=== PATIENT | female | born 1995 ===

== ENCOUNTER 2019-02-06 14:31 | Inpatient (IN) | payer OTHER ==
[2019-02-06] VITALS (43 sets, daily range): BP systolic 117–169; BP diastolic 66–104
[~2019-02-06] VITALS: Ht 162.6 cm; Wt 75.3 kg
[2019-02-06 15:00] LABS: BILIRUBIN,URINE NEGATIVE (NEGATIVE); CLARITY,URINE CLEAR; COLOR,URINE YELLOW; GLUCOSE, URINE (UA) NEGATIVE (NEGATIVE); KETONES,URINE NEGATIVE (NEGATIVE); LEUKOCYTE ESTERASE ,URINE NEGATIVE (NEGATIVE); NITRITE,URINE NEGATIVE (NEGATIVE); PROTEIN,URINE 1+ (NEGATIVE)
[2019-02-06 15:07] LABS: BACTERIA,URINE FEW /HPF; RBC,URINE 25-50 /HPF; WBC,URINE RARE /HPF
[2019-02-06] MEDS ORDERED: D5 LR IV SOLUTION 1,000 ML IV SCH (15:36)
[2019-02-06] MEDS ORDERED: MINERAL OIL CONCENTRATE 99.9% 15 ML UDC TOP SCH (15:45)
[2019-02-06 16:08] LABS: BASOPHILS % (AUTO) 0 % (0-10); EOSINOPHILS # (AUTO) 0.1 10^3/uL (0.0-0.3); EOSINOPHILS % (AUTO) 1 % (0-10); HEMATOCRIT 32 % (35-52); HEMOGLOBIN 10.5 G/DL (11.5-16.0); LYMPHOCYTES # (AUTO) 2.2 X 10^3 (1.0-4.0); LYMPHOCYTES % (AUTO) 20 % (12-44); MEAN CORPUSCULAR HEMOGLOBIN 28 PG (25-34); MEAN CORPUSCULAR HGB CONC 33 G/DL (32-36); MEAN CORPUSCULAR VOLUME 85 FL (80-99); MEAN PLATELET VOLUME 11.4 FL (7.4-10.4); MONOCYTES # (AUTO) 0.9 X 10^3 (0.0-1.0); MONOCYTES % (AUTO) 8 % (0-12); NEUTROPHILS # (AUTO) 7.9 X 10^3 (1.8-7.8); NEUTROPHILS % (AUTO) 71 % (42-75); PLATELET COUNT 263 10^3/uL (130-400); RED CELL DISTRIBUTION WIDTH 16.3 % (10.0-14.5); WHITE BLOOD COUNT 11.2 10^3/uL (4.3-11.0)
[2019-02-06 16:30] LABS: BENZODIAZEPINES SCREEN URINE NEGATIVE (NEGATIVE); COCAINE SCREEN URINE NEGATIVE (NEGATIVE)
[2019-02-06 16:31] LABS: AMPHETAMINE SCREEN, URINE POSITIVE (NEGATIVE); BARBITURATE SCREEN URINE NEGATIVE (NEGATIVE); CANNABINOID SCREEN, URINE NEGATIVE (NEGATIVE); METHADONE STAT NEGATIVE (NEGATIVE); METHAMPHETAMINE SCREEN URINE S POSITIVE (NEGATIVE); OPIATE SCREEN URINE NEGATIVE (NEGATIVE); OXYCODONE STAT NEGATIVE (NEGATIVE); PROPOXYPHENE STAT NEGATIVE (NEGATIVE); TRICYCLIC ANTIDEPRESSANTS SCRE NEGATIVE (NEGATIVE)
[2019-02-06] MEDS ORDERED: LIDOCAINE/EPI 2% 1:200,00 (XYLOCAINE) 10 ML VIAL ONE (17:03)
[2019-02-06] MEDS ORDERED: OXYTOCIN/NORMAL SALINE 500 ML IV ONE (17:04)
--- NOTE | 2019-02-06 17:29 | History & Physical-OB ---
OB - Chief Complaint & HPI Date/Time Date of Admission: Date of Admission: Feb 06, 2019 at 15:33 Date seen by a Provider: Feb 06, 2019 Time Seen by a Provider: 17:24 Chief Complaint/History OB-Reason for Admission/Chief: Onset of Labor Hx : 1 Hx Para: 0 Expected Date of Delivery: Feb 19, 2019 Gestational Age in Weeks: 38 Gestational Age in Days: 3 History of Labs B+, antibody neg, RNI. HIV/HepB/RPR NR. GC neg. Chlamydia POS treated 01/28/19. GBS unknown, swab done today in clinic. Allergies and Home Medications Allergies Coded Allergies: No Known Drug Allergies (Unverified , 02/06/19) Patient Home Medication List Home Medication List Reviewed: No OB - History Hx of Present Care: Yes Ultrasounds: Other (37 week US was first US, limited anatomy scan) Obstetrical Complications: Other (late care, first visit around 34 weeks, dating by 37 week US, methamphetamine use in , chlamydia in ) Obstetrical History Hx : 1 Hx Para: 0 Patient Past Medical History PMHx: Methamphetamine use Social History/Family History Recent Infectious Disease Expo: No Alcohol Use: Denies Use Recreational Drug Use: Yes 2nd Hand Smoke Exposure: Yes Immunizations Tetanus Booster (TDap): Less than 5yrs Rubella: not immune RPR/VDRL: Negative GBS Status: Unknown HBsAG: Negative OB - Admission Exam Physical Exam Vitals: Vital Signs 02/06/19 02/06/19 14:40 14:56 Temp 36.0 Pulse 77 Resp 18 B/P (MAP) 135/89 (104) Pulse Ox 99 O2 Delivery Room Air HEENT: NCAT Abdomen: Non tender Extremities: Edema Cervical Dilatation: 6cm Effacement: Other (90%) Station: +1 Membranes: Ruptured (AROM at time of exam) Amniotic Fluid: Clear Heart Rate: 150's Decelerations: No Decelerations Short Term Variability: Present Senior Care Variability: Average (6-25) Contractions on Admission: < 5 Minutes Apart Labs Laboratory Tests Test 02/06/19 14:50 02/06/19 15:53 02/06/19 16:00 Range/Units Urine Color YELLOW Urine Clarity CLEAR Urine pH 6.0 5-9 Urine Specific [place] >=1.030 1.016-1.022 Urine Protein 1+ H NEGATIVE Urine Glucose (UA) NEGATIVE NEGATIVE Urine Ketones NEGATIVE NEGATIVE Urine Nitrite NEGATIVE NEGATIVE Urine Bilirubin NEGATIVE NEGATIVE Urine Urobilinogen 0.2 < = 1.0 MG/DL Urine Leukocyte Esterase NEGATIVE NEGATIVE Urine RBC (Auto) 3+ H NEGATIVE Urine RBC 25-50 H /HPF Urine WBC RARE /HPF Urine Squamous Epithelial Cells 10-25 H /HPF Urine Crystals NONE /LPF Urine Bacteria FEW H /HPF Urine Casts NONE /LPF Urine Mucus SMALL H /LPF Urine Culture Indicated CULTURE PENDING White Blood Count 11.2 H 4.3-11.0 10^3/uL Red Blood Count 3.75 L 4.35-5.85 10^6/uL Hemoglobin 10.5 L 11.5-16.0 G/DL Hematocrit 32 L 35-52 % Mean Corpuscular Volume 85 80-99 FL Mean Corpuscular Hemoglobin 28 25-34 PG Mean Corpuscular Hemoglobin Concent 33 32-36 G/DL Red Cell Distribution Width 16.3 H 10.0-14.5 % Platelet Count 263 130-400 10^3/uL Mean Platelet Volume 11.4 H 7.4-10.4 FL Neutrophils (%) (Auto) 71 42-75 % Lymphocytes (%) (Auto) 20 12-44 % Monocytes (%) (Auto) 8 0-12 % Eosinophils (%) (Auto) 1 0-10 % Basophils (%) (Auto) 0 0-10 % Neutrophils # (Auto) 7.9 H 1.8-7.8 X 10^3 Lymphocytes # (Auto) 2.2 1.0-4.0 X 10^3 Monocytes # (Auto) 0.9 0.0-1.0 X 10^3 Eosinophils # (Auto) 0.1 0.0-0.3 10^3/uL Basophils # (Auto) 0.0 0.0-0.1 10^3/uL Urine Opiates Screen NEGATIVE NEGATIVE Urine Oxycodone Screen NEGATIVE NEGATIVE Urine Methadone Screen NEGATIVE NEGATIVE Urine Propoxyphene Screen NEGATIVE NEGATIVE Urine Barbiturates Screen NEGATIVE NEGATIVE Ur Tricyclic Antidepressants Screen NEGATIVE NEGATIVE Urine Phencyclidine Screen NEGATIVE NEGATIVE Urine Amphetamines Screen POSITIVE H NEGATIVE Urine Methamphetamines Screen POSITIVE H NEGATIVE Urine Benzodiazepines Screen NEGATIVE NEGATIVE Urine Cocaine Screen NEGATIVE NEGATIVE Urine Cannabinoids Screen NEGATIVE NEGATIVE OB - Assessment/Plan/Diagnosis Assessment Admission Dx Active labor at full term 38 weeks gestation Limited care GBS unknown Poor dating Methamphetamine use in Admission Status: Inpatient Order (span 2 midnights) Reason for Inpatient Admission: Labor, delivery and course Plan Plan: Expectant Management, Other (AROM) Other Plan government services professional consult ANITA LANCASTER MD Feb 06, 2019 17:29 POS
[2019-02-06] MEDS ORDERED: OXYTOCIN/NORMAL SALINE 500 ML IV SCH (17:52)
[2019-02-06] MEDS ORDERED: SUFENTA 0.6MCG/ML BUPIVA 0.125 100 ML ONE (19:09)
[2019-02-06] MEDS ORDERED: LACTATED RINGERS 1,000 ML IV SCH (19:35)
[2019-02-06] MEDS ORDERED: ONDANSETRON 4 MG/2 ML (SDV) Z0FRAN IV PRN (19:45)
[2019-02-06] MEDS ORDERED: diphenhydrAMINE 50 MG/ML INJ (BENADRYL) IV PRN (19:45)
[2019-02-06] MEDS ORDERED: METOCLOPRAMIDE INJ 10 MG/2 ML (REGLAN) IV PRN (19:45)
[2019-02-06] MEDS ORDERED: NALOXONE 0.4 MG/ML 1 ML (NARCAN) VIAL IV PRN ×2 (19:45)
[2019-02-06] MEDS ORDERED: EPIDURAL (SUFENTA 0.6MCG/ML BUPIVA 0.125%) 100 ML BAG EPI SCH (19:45)
[2019-02-06 20:41] LABS: ALANINE AMINOTRANSFERASE 20 U/L (0-55); ALBUMIN 2.8 GM/DL (3.2-4.5); ALKALINE PHOSPHATASE 454 U/L (40-136); BILIRUBIN,TOTAL 0.8 MG/DL (0.1-1.0); BUN/CREATININE RATIO 13; CALCIUM 8.5 MG/DL (8.5-10.1); CARBON DIOXIDE 19 MMOL/L (21-32); CHLORIDE 107 MMOL/L (98-107); GFR ESTIMATED > 60; GLUCOSE 81 MG/DL (70-105); POTASSIUM 3.6 MMOL/L (3.6-5.0); SODIUM 137 MMOL/L (135-145); TOTAL PROTEIN 6.2 GM/DL (6.4-8.2); URIC ACID 4.4 MG/DL (2.6-7.2)
[2019-02-06] MEDS ORDERED: CATHETER FLUSH 10 ML SYR IV SCH (22:00)
[2019-02-07] VITALS (18 sets, daily range): BP systolic 120–183; BP diastolic 65–104
[2019-02-07] MEDS ORDERED: MISOPROSTOL 200 MCG (CYTOTEC) TABLET PR ONE (02:45)
[2019-02-07] MEDS ORDERED: MISOPROSTOL 200 MCG (CYTOTEC) TABLET ONE (02:51)
[2019-02-07] MEDS ORDERED: LABETALOL HCL 20 MG/4 ML VIAL IV ONE (03:00)
[2019-02-07] MEDS ORDERED: LABETALOL HCL 20 MG/4 ML VIAL ONE (03:04)
--- NOTE | 2019-02-07 04:06 | OB Labor & Delivery Record ---
Vag Delivery Note Vag Delivery Note Date of Delivery: 02/07/19 Preoperative Diagnosis: Cheryl Gonzalez is a 23 /Para 1 / 0,Gestational Age (wks)38with 3 days Postoperative Diagnosis: Same Surgeon: ANITA LANCASTER Silk Screen Operator: None Anesthesia: Epidural Delivery Type: Spontaneous vaginal Findings: Viable female infant, apgars 8/9, weight 6#14 Lacerations: Bilateral perirethral, first degree perineal Intact placenta with 3 vessel cord. No nuchal cord, body cord or shoulder dystocia Estimated Blood Loss: 450 ml Complications: None Condition: Stable Description of Procedure: The patient is a 23 year old female who presented in active labor. She was admitted and informed consent was obtained. Her labor course was remarkable for prolonged active phase. She progressed to complete dilatation and began to push. She was then set up for delivery. The infant's head was delivered atraumatically in the TAYLOR position. The shoulders and remainder of the infant's body were then delivered without difficulty. Upon delivery, the infant was vigorous and placed on maternal abdomen. After a delay the cord was doubly clamped and cut and the infant was handed off to the pediatric staff. An intact placenta with 3-vessel cord delivered via Katrin and there was found to be moderate bleeding.~ Vigorous fundal massage was performed and the fundus was found to be firm. IV oxytocin was given. Bleeding continued to be brisk in spite of firm fundus, cytotec 800 mcg placed rectally and bleeding became minimal. Examination of the vagina and perineum revealed bilateral periurethal lacerations repaired in simple running fashion and first degree perineal laceration repaired in the usual fashion with 3-0 rapide suture. Following the repair, sponge, instrument and needle counts were correct. Blood pressure noted at that time to be above 170 systolic, given mild to moderate increased BP throughout labor, suspected true reading and gave 20 mg labetalol IV with good response. Mom and baby were both in stable condition in the labor suite. Vitals - Labs Vital Signs - I&O Vital Signs 02/06/19 02/06/19 20:30 23:35 Temp 36.8 Pulse 83 Resp 16 B/P (MAP) 125/68 (87) Pulse Ox 100 O2 Delivery Room Air Labs Laboratory Tests 02/06/19 14:50: Urine Color YELLOW, Urine Clarity CLEAR, Urine pH 6.0, Urine Specific [place] >=1.030, Urine Protein 61H, Urine Glucose (UA) NEGATIVE, Urine Ketones NEGATIVE, Urine Nitrite NEGATIVE, Urine Bilirubin NEGATIVE, Urine Urobilinogen 0.2, Urine Leukocyte Esterase NEGATIVE, Urine RBC (Auto) 3+H, Urine RBC 25-50H, Urine WBC RARE, Urine Squamous Epithelial Cells 10-25H, Urine Crystals NONE, Urine Bacteria FEWH, Urine Casts NONE, Urine Mucus SMALLH, Urine Culture Indicated CULTURE PENDING, Urine Creatinine 138H, Urine Protein/Creatinine Ratio 0.44 02/06/19 15:53: White Blood Count 11.2H, Red Blood Count 3.75L, Hemoglobin 10.5L, Hematocrit 32L , Mean Corpuscular Volume 85, Mean Corpuscular Hemoglobin 28, Mean Corpuscular Hemoglobin Concent 33, Red Cell Distribution Width 16.3H, Platelet Count 263, Mean Platelet Volume 11.4H, Neutrophils (%) (Auto) 71, Lymphocytes (%) (Auto) 20, Monocytes (%) (Auto) 8, Eosinophils (%) (Auto) 1, Basophils (%) (Auto) 0, Neutrophils # (Auto) 7.9H, Lymphocytes # (Auto) 2.2, Monocytes # (Auto) 0.9, Eosinophils # (Auto) 0.1, Basophils # (Auto) 0.0, Sodium Level 137, Potassium Level 3.6, Chloride Level 107, Carbon Dioxide Level 19L, Anion Gap 11, Blood Urea Nitrogen 8, Creatinine 0.60, Estimat Glomerular Filtration Rate > 60, BUN/Creatinine Ratio 13, Glucose Level 81, Uric Acid 4.4, Calcium Level 8.5, Corrected Calcium 9.5, Total Bilirubin 0.8, Aspartate Amino Transf (AST/SGOT) 23, Alanine Aminotransferase (ALT/SGPT) 20, Alkaline Phosphatase 454H, Lactate Dehydrogenase 234H, Total Protein 6.2L, Albumin 2.8L 02/06/19 16:00: Urine Opiates Screen NEGATIVE, Urine Oxycodone Screen NEGATIVE, Urine Methadone Screen NEGATIVE, Urine Propoxyphene Screen NEGATIVE, Urine Barbiturates Screen NEGATIVE, Ur Tricyclic Antidepressants Screen NEGATIVE, Urine Phencyclidine Screen NEGATIVE, Urine Amphetamines Screen POSITIVEH, Urine Methamphetamines Screen POSITIVEH, Urine Benzodiazepines Screen NEGATIVE, Urine Cocaine Screen NEGATIVE, Urine Cannabinoids Screen NEGATIVE ANITA LANCASTER MD Feb 07, 2019 04:05 POS
[2019-02-07] MEDS ORDERED: OXYTOCIN/NORMAL SALINE 500 ML IV SCH (05:26)
[2019-02-07] MEDS ORDERED: WITCH HAZEL(TUCKS) 40 EA JAR TOP PRN (05:30)
[2019-02-07] MEDS ORDERED: MEASLES,MUMPS,RUBELLA 1 EA INJ SQ ONE (05:30)
[2019-02-07] MEDS ORDERED: BENZOCAINE/MENTHOL (DERMOPLAST) 56 ML CAN TP PRN (05:30)
[2019-02-07] MEDS ORDERED: ACETAMINOPHEN 500 MG TAB (TYLENOL) ONE (05:38)
[2019-02-07] MEDS: ACETAMINOPHEN 500 MG TAB (TYLENOL) PO SCH ×3 (06:00→22:10)
[2019-02-07] MEDS ORDERED: CATHETER FLUSH 10 ML SYR IV SCH (06:00)
--- NOTE | 2019-02-07 09:46 | Anesthesia-Regional Post-Op ---
Regional Patient Condition Mental Status: Alert, Oriented x3 Circulation: Same as Pre-Op Headache: Absent Sensation: Full Recovery Motor Block: Absent Post Op Complications Complications None Follow Up Care/Instructions Patient Instructions None needed. Anesthesia/Patient Condition Patient is doing well, no complaints, stable vital signs, no apparent adverse anesthesia problems. No complications reported per nursing. DAYANNA FISHER CRNA Feb 07, 2019 09:46 POS
[2019-02-07] MEDS: PRENATAL VITAMIN 1 EA TAB PO SCH (10:08)
[2019-02-07] MEDS: DOCUSATE SODIUM 100 MG (COLACE) CAP PO SCH (10:08)
[2019-02-07] MEDS: FERROUS SULF 325 MG (IRON) TAB PO SCH (10:08)
[2019-02-07] MEDS: IBUPROFEN 600 MG (MOTRIN) TAB PO SCH ×2 (12:21→18:22)
[2019-02-08] MEDS: IBUPROFEN 600 MG (MOTRIN) TAB PO SCH ×3 (00:28→13:22)
[2019-02-08 00:29] VITALS: BP 112/81
[2019-02-08] MEDS: ACETAMINOPHEN 500 MG TAB (TYLENOL) PO SCH (05:42)
[2019-02-08 05:43] VITALS: BP 126/88
[2019-02-08 06:37] LABS: BASOPHILS % (AUTO) 0 % (0-10); EOSINOPHILS # (AUTO) 0.2 10^3/uL (0.0-0.3); EOSINOPHILS % (AUTO) 1 % (0-10); HEMATOCRIT 29 % (35-52); LYMPHOCYTES # (AUTO) 2.7 X 10^3 (1.0-4.0); LYMPHOCYTES % (AUTO) 15 % (12-44); MEAN CORPUSCULAR HEMOGLOBIN 27 PG (25-34); MEAN CORPUSCULAR HGB CONC 32 G/DL (32-36); MEAN CORPUSCULAR VOLUME 87 FL (80-99); MEAN PLATELET VOLUME 11.1 FL (7.4-10.4); MONOCYTES # (AUTO) 1.3 X 10^3 (0.0-1.0); MONOCYTES % (AUTO) 7 % (0-12); NEUTROPHILS # (AUTO) 14.2 X 10^3 (1.8-7.8); NEUTROPHILS % (AUTO) 77 % (42-75); PLATELET COUNT 242 10^3/uL (130-400); RED CELL DISTRIBUTION WIDTH 17.1 % (10.0-14.5); WHITE BLOOD COUNT 18.3 10^3/uL (4.3-11.0)
[2019-02-08 08:25] VITALS: BP 126/88
[2019-02-08] MEDS: DOCUSATE SODIUM 100 MG (COLACE) CAP PO SCH (08:37)
[2019-02-08] MEDS: FERROUS SULF 325 MG (IRON) TAB PO SCH (08:37)
[2019-02-08] MEDS: PRENATAL VITAMIN 1 EA TAB PO SCH (08:37)
--- NOTE | 2019-02-08 08:55 | Discharge Summary ---
Diagnosis/Chief Complaint Date of Admission Feb 06, 2019 at 15:33 Date of Discharge February 08, 2019 Admission Diagnosis Admission Diagnosis 1. Intrauterine at term 2. Minimal care 3. Maternal drug usedrug screen positive amphetamines and methamphetamines Discharge Diagnosis 1. Intrauterine at term 2. Minimal care 3. Maternal drug usedrug screen positive amphetamines and methamphetamines Chief Complaint/HPI Chief Complaint/HPI 23-year-old 1 now term 1 who initially presented to labor and delivery during the afternoon of February 06, 2019 in labor. She does live in [facility] and does admit to minimal care. Discharge Summary-OBS Procedures 1. Epidural per anesthesia 2. Spontaneous vaginal delivery 3. Repair of bilateral periurethral tears and first-degree perineal laceration Discharge Physical Examination Allergies: Coded Allergies: No Known Drug Allergies (Unverified , 02/06/19) Vitals & I&Os Vital Sign - Last 12Hours Date Time Temp Pulse Resp B/P (MAP) Pulse Ox O2 Delivery O2 Flow Rate FiO2 02/08/19 05:43 36.5 99 18 126/88 (101) 100 Room Air General Appearance: No Acute Distress Respiratory: Clear to Auscultation Cardiovascular: Regular Rate Abdominal: Soft (With uterus firm) Hospital Course Was the Problem List Reviewed?: Yes Patient was admitted on February 06, 2019 in labor. She ultimately received epidural per anesthesia and tolerated well. She required Pitocin augmentation and labor. Ultimately she went on to completion and delivered over a first- degree perineal laceration a term viable female. Infant weighed 6 lbs. 14 oz. and had Apgars of 8 at 1 minute and 9 at 5 minutes. See labor and delivery note for full details. Following delivery patient underwent routine care orders. She was found to have positive amphetamine and methamphetamine on urine drug screen. hospitality services manager consult was obtained. Her hemoglobin day after delivery was noted to be 9.0 compared to admission of 10.5. She was asymptomatic on day of dismissal of February 08, 2019 with regard to any dizziness or chest pain. She reported tolerating regular diet. All questions were answered. She will be rooming in as her daughter will be staying in until high school social studies tutor has disposition. Labs Laboratory Tests 02/08/19 05:55: White Blood Count 18.3H, Red Blood Count 3.29L, Hemoglobin 9.0L, Hematocrit 29L, Mean Corpuscular Volume 87, Mean Corpuscular Hemoglobin 27, Mean Corpuscular Hemoglobin Concent 32, Red Cell Distribution Width 17.1H, Platelet Count 242, Mean Platelet Volume 11.1H, Neutrophils (%) (Auto) 77H, Lymphocytes (%) (Auto) 15, Monocytes (%) (Auto) 7, Eosinophils (%) (Auto) 1, Basophils (%) (Auto) 0, Neutrophils # (Auto) 14.2H, Lymphocytes # (Auto) 2.7, Monocytes # (Auto) 1.3H, Eosinophils # (Auto) 0.2, Basophils # (Auto) 0.0 Discharge Instructions to patient/family Please see electronic discharge instructions given to patient. Discharge Medications Reviewed and agree with Discharge Medication list on patient's Discharge Instruction sheet Clinical Quality Measures DVT/VTE Risk/Contraindication: Risk Factor Score Per Nursin RFS Level Per Nursing on Admit: 2=Moderate JAMES YAP MD Feb 08, 2019 08:55 POS
--- NOTE | 2019-02-08 08:57 | Discharge Inst-Women's Service ---
Discharge Inst-Women's Serv Depart Medication/Instructions New, Converted or Re-Newed RX: Other Instructions May take ibuprofen [id number] 200 mg tablets2 or 3 every 6 hours as needed for cramps. May also utilize Tylenol if she so desires as per labeling. Problems Reviewed?: Yes Consults/Follow Up Additional Follow Up: Yes (With your supervisor blasting in 6 weeks) Activity Driving Instructions: No Driving for 1 Week Nothing Inside Vagina: No Seaman (For 6 weeks) Diet Discharge Diet: Regular Diet Return to The Hospital For: As below Symptoms to Report to : Bleeding Excessive, Fever Over 101 Degrees F, Vaginal Discharge Foul For Any Problems or Questions: Contact Your Physician JAMES YAP MD Feb 08, 2019 08:57 POS
[2019-02-08 13:50] VITALS: BP 126/88
== END 2019-02-08 13:50 | disposition home or self-care (01) | DRG 807 ==
LOC: WSo 14:31 → LDRP 15:33
PROVIDERS: ADMIT Family Medicine; ATTEND Family Medicine
PROC: 10E0XZZ Delivery of Products of Conception, External Approach (ICD-10-PCS; principal; 2019-02-07)
PROC: 0HQ9XZZ Repair Perineum Skin, External Approach (ICD-10-PCS; 2019-02-07)
PROC: 0UQMXZZ Repair Vulva, External Approach (ICD-10-PCS; 2019-02-07)
DX: O99.324 Drug use complicating childbirth (principal); Z37.0 Single live birth; F15.90 Other stimulant use, unspecified, uncomplicated; Z3A.38 38 weeks gestation of pregnancy; O67.9 Intrapartum hemorrhage, unspecified; Z23 Encounter for immunization
CPT/HCPCS: 36415; 80053; 80306; 81000; 82570; 83615; 84156; 84550; 85025; 86850; 86900; 86901; 87077; 87088; 90707; 99212